=== PATIENT | male | born 1955 | race American Indian/Alaskan Native ===

== ENCOUNTER 2019-01-26 09:37 | Outpatient (CLI) | payer BC ==
[2019-01-26 10:19] LABS: Hematocrit 42.9 % (35.5-45.6); Hemoglobin 14.2 gm/dl (11.8-15.2); Mean Corpuscular HGB Conc 33 % (32-34); Mean Corpuscular Volume 88 fl (84-94); Platelet Count 209 K/mm3 (140-440); Red Blood Count 4.89 M/mm3 (3.65-5.03); Red Cell Distribution Width 14.7 % (13.2-15.2)
[2019-01-26 10:36] LABS: Alanine Aminotransferase 15 units/L (7-56); Albumin 4.8 g/dL (3.9-5); BUN/Creatinine Ratio 19; Blood Urea Nitrogen 15 mg/dL (9-20); Calcium 9.2 mg/dL (8.4-10.2); Chol/HDL Ratio 5.81 %; HDL Cholesterol 33 mg/dL (40-59); Hemolysis Index 3; LDL Cholesterol,Direct 151 mg/dL (50-130)
--- NOTE | 2019-01-26 12:31 | XRay Report ---
PARANASAL SINUSES HISTORY: Other allergic rhinitis/sinusitis COMPARISON: None. TECHNIQUE: 4 radiographic view(s) of the paranasal sinuses obtained. FINDINGS: Paranasal sinuses: No significant abnormality. Bones: No significant abnormality. Soft Tissues: No significant abnormality. Additional Findings: None. IMPRESSION: 1. No significant abnormality. Signer Name: Ren Montes De Oca Jr, MD Signed: 01/26/2019 12:27 PM Workstation Name: [id number]
--- NOTE | 2019-01-26 12:33 | XRay Report ---
CHEST 2 VIEWS INDICATION: D86.9 SARCOIDOSIS/R05 COUGH. COMPARISON: 06/19/2016 FINDINGS: Support devices: None. Heart: Within normal limits. Lungs/pleura: Interstitial markings are prominent in both lower lung zones and right upper lobe. This pattern appears unchanged since 06/19/2016. No evidence for consolidation, pleural effusion or pneumo thorax. No pneumothorax. Additional findings: None. IMPRESSION: Mild chronic interstitial changes which appear stable since 06/19/2016. Signer Name: Ren Montes De Oca Jr, MD Signed: 01/26/2019 12:28 PM Workstation Name: [id number]
--- NOTE | 2019-01-26 12:35 | Fluoroscopy Report ---
UPPER GI HISTORY: Throat pain, gastroesophageal reflux. TECHNIQUE: Single and double contrast barium technique utilized to evaluate the esophagus, stomach, and duodenal C-loop. FINDINGS: To begin the exam, swallowing was evaluated in the lateral position under direct fluorosco py. Swallowing was normal. No mucosal irregularity, mass, mass effect, or critical stenosis. There were no abnormal tertiary c ontractions as seen with dysmotility. A few episodes of mild gastroesophageal reflux into the distal esophagus was witnessed during this exam. IMPRESSION: Mild gastroesophageal reflux into the distal esophagus. Fluoroscopic time: 1.7 minutes Number of fluoroscopic images: 39 Signer Name: Ren Montes De Oca Jr, MD Signed: 01/26/2019 12:30 PM Workstation Name: [id number]
[2019-01-26 13:00] LABS: Total Cells Counted 100
[2019-01-26 13:01] LABS: Platelet Estimate Consistent w Auto; RBC Morphology Normal
== END 2019-01-26 09:38 | disposition home or self-care (01) ==
LOC: FLUORO 09:37
PROVIDERS: ATTEND Internal Medicine
DX: K21.9 Gastro-esophageal reflux disease without esophagitis (principal); R91.8 Other nonspecific abnormal finding of lung field; J30.89 Other allergic rhinitis; D86.9 Sarcoidosis, unspecified
CPT/HCPCS: 36415; 70220; 71046; 74247; 80053; 80061; 82164; 82785; 82803; 84436; 84443; 85007; 85025